=== PATIENT | female | born 1990 | race Caucasian/White ===

== ENCOUNTER → 2023-10-20 10:43 | Outpatient (REF) | payer OTHER, SELFPAY | LOC: PNTC 10:43 | PROVIDERS: ATTENDING PHYSICIAN Obstetrics & Gynecology | DX: O99.320 Drug use complicating pregnancy, unspecified trimester (principal); E83.118 Other hemochromatosis | CPT/HCPCS: 76805 ==

== ENCOUNTER 2024-03-29 19:44 | Inpatient (IN) | payer OTHER, SELFPAY ==
[2024-03-29 19:47] VITALS: BMI 28.3
[2024-03-29 20:12] VITALS: BP 149/98
[2024-03-29] MEDS: CYTOTEC 25 MICROGRAM VAG (20:16)
[2024-03-29 20:50] LABS: % Basophils 0.5 % (0-2); % Eosinophils 0.4 % (0-6); % Immature Granulocytes 0.6 % (0-0.5); % Lymphocytes 18.5 % (20.5-51.1); % Monocytes 7.2 % (1.7-9.3); % Neutrophils 72.8 % (42.2-75.2); Absolute Basophils 0.1 10^3/uL (0-0.2); Absolute Immature Granulocytes 0.1 10^3/uL (0-0.05); Absolute Lymphocytes 1.9 10^3/uL (1.2-3.4); Absolute Monocytes 0.7 10^3/uL (0.1-0.6); Absolute Neutrophils 7.3 10^3/uL (1.4-6.5); Hematocrit 27.7 % (37.0-47.0); Mean Corp Hgb Conc. 32.5 g/dL (33.0-37.0); Mean Corpuscular Hgb 28.8 pg (27.0-31.0); Mean Corpuscular Volume 88.5 fL (81.0-99.0); Mean Platelet Volume 11.3 fL (7.4-10.4); Nucleated Red Blood Cells % 0 %; Platelet Count 229 10^3/uL (130-400); Red Blood Cell Count 3.13 10^6/uL (4.20-5.40)
[2024-03-29 21:55] LABS: ALT (SGPT) 22 U/L (0-35); AST (SGOT) 40 U/L (14-36); Albumin 3.3 g/dl (3.5-5.0); Alkaline Phosphatase 206 U/L (38-126); Blood Urea Nitrogen 8 mg/dl (7-17); Calcium 8.9 mg/dl (8.4-10.2); Carbon Dioxide 21 mmol/L (22-30); Chloride 105 mmol/L (98-107); Estimated Creatinine Clearance > 125 ml/min; Glucose 86 mg/dl (70-99); Potassium 4.2 mmol/L (3.5-5.1); Sodium 132 mmol/L (135-145); Total Bilirubin 0.3 mg/dl (0.2-1.3); Total Protein 5.8 g/dl (6.3-8.2); eGFR > 60.00
[2024-03-29 22:19] LABS: Urine Albumin Negative (Neg - Trace); Urine Bilirubin Negative (Negative); Urine Character Clear (Clear); Urine Color Yellow; Urine Glucose Negative (Negative); Urine Ketone Negative (Negative); Urine Leukocyte Negative (Negative); Urine Nitrite Negative (Negative); Urine Occult Blood Negative (Negative); Urine Urobilinogen Negative (Neg - 1+)
[2024-03-29 22:39] LABS: Protein/creatinine Ratio 0.4; Urine Protein 13 mg/dl
[2024-03-29] MEDS: CYTOTEC 50 MICROGRAM PO (23:59)
[2024-03-30] MEDS: LR 1000 IV ×2 (01:49→05:30)
[2024-03-30] MEDS: SUBLIMAZE 100 MCG EPIDURAL (02:10)
[2024-03-30] MEDS: FENTANYL/BUPIVACAINE 100 EPIDURAL (02:11)
[2024-03-30] MEDS: CYTOTEC PO (04:36)
[2024-03-30] MEDS: PENICILLIN 110 UNITS IV (06:16)
[2024-03-30] MEDS: PRENATAL PLUS 1 TABLET PO (08:49)
[2024-03-30] MEDS: MOTRIN 600 MG PO ×3 (08:49→21:32)
[2024-03-30] MEDS: PEPCID PO (09:29)
[2024-03-30] MEDS: ADVAIR HFA 230/21 MCG INHALER INH (17:48)
[2024-03-30] MEDS: ADVAIR HFA 230/21 MCG INHALER 2 PUFF INH (17:49)
--- NOTE | 2024-03-30 18:13 | RESPNOTE ---
patient seen around 1800 for scheduled inhalers. Advair administered per order with spacer. patient states she does not take albuterol inhaler on schedule, only as needed. will contact doc for order change in morning.
[2024-03-30] MEDS: PEPCID 20 MG PO (20:07)
[2024-03-30] MEDS: SINGULAIR 10 MG PO (21:32)
[2024-03-30] MEDS: LEXAPRO 10 MG PO (21:33)
[2024-03-30] MEDS: CLARITIN 10 MG PO (21:33)
[2024-03-31 05:19] LABS: Hematocrit 28.3 % (37.0-47.0); Hemoglobin 9.3 g/dL (12.0-16.0)
[2024-03-31] MEDS: MOTRIN 600 MG PO (07:39)
[2024-03-31] MEDS: PRENATAL PLUS 1 TABLET PO (07:39)
[2024-03-31] MEDS: PEPCID 20 MG PO (07:39)
[2024-03-31] MEDS: SENOKOT-S 1 TABLET PO (07:39)
[2024-03-31 16:47] LABS: Syphilis/T. pallidum Ab Reflex Negative (Negative)
== END 2024-03-31 13:49 | disposition home or self-care (01) | DRG 807 ==
LOC: LDRP 19:44
PROVIDERS: Obstetrics & Gynecology; ADMITTING PHYSICIAN Obstetrics & Gynecology; ATTENDING PHYSICIAN Obstetrics & Gynecology
PROC: 3E0P7VZ Introduction of Hormone into Female Reproductive, Via Natural or Artificial Opening (ICD-10-PCS; 2024-03-29)
PROC: 10E0XZZ Delivery of Products of Conception, External Approach (ICD-10-PCS; 2024-03-30)
PROC: 4A1HXCZ Monitoring of Products of Conception, Cardiac Rate, External Approach (ICD-10-PCS; 2024-03-30)
PROC: 0UQMXZZ Repair Vulva, External Approach (ICD-10-PCS; 2024-03-30)
DX: O48.0 Post-term pregnancy (principal); Z37.0 Single live birth; O99.824 Streptococcus B carrier state complicating childbirth; O77.0 Labor and delivery complicated by meconium in amniotic fluid; O69.81X0 Labor and delivery complicated by cord around neck, without compression, not applicable or unspecified; E83.119 Hemochromatosis, unspecified; O99.284 Endocrine, nutritional and metabolic diseases complicating childbirth; O99.52 Diseases of the respiratory system complicating childbirth; J45.909 Unspecified asthma, uncomplicated; O99.344 Other mental disorders complicating childbirth; F41.9 Anxiety disorder, unspecified; O71.82 Other specified trauma to perineum and vulva; Z79.899 Other long term (current) drug therapy; Z3A.40 40 weeks gestation of pregnancy; Z88.5 Allergy status to narcotic agent; Z91.040 Latex allergy status; Z86.16 Personal history of COVID-19
CPT/HCPCS: 88307; 36415; 80053; 81003; 82570; 84156; 85014; 85018; 85025; 86780; 86850; 86900; 86901; 94640

== ENCOUNTER 2024-04-03 17:26 | Inpatient (IN) | payer OTHER, SELFPAY ==
[2024-04-03 16:14] VITALS: BP 133/97; BMI 27.0
[2024-04-03 16:43] LABS: % Basophils 0.6 % (0-2); % Eosinophils 3.5 % (0-6); % Lymphocytes 16.7 % (20.5-51.1); % Monocytes 5.7 % (1.7-9.3); % Neutrophils 72.5 % (42.2-75.2); Absolute Basophils 0.1 10^3/uL (0-0.2); Absolute Eosinophils 0.4 10^3/uL (0-0.7); Absolute Immature Granulocytes 0.1 10^3/uL (0-0.05); Absolute Lymphocytes 1.7 10^3/uL (1.2-3.4); Absolute Monocytes 0.6 10^3/uL (0.1-0.6); Absolute Neutrophils 7.5 10^3/uL (1.4-6.5); Hematocrit 27.3 % (37.0-47.0); Mean Corpuscular Hgb 29.8 pg (27.0-31.0); Mean Corpuscular Volume 90.4 fL (81.0-99.0); Mean Platelet Volume 10.7 fL (7.4-10.4); Nucleated Red Blood Cells % 0 %; Platelet Count 285 10^3/uL (130-400); Red Blood Cell Count 3.02 10^6/uL (4.20-5.40); Red Cell Dist. Width 13.6 % (11.5-14.5); White Blood Cell Count 10.3 10^3/uL (4.8-10.8)
[2024-04-03 16:51] LABS: ALT (SGPT) 82 U/L (0-35); AST (SGOT) 88 U/L (14-36); Albumin 3.6 g/dl (3.5-5.0); Alkaline Phosphatase 138 U/L (38-126); Blood Urea Nitrogen 13 mg/dl (7-17); Calcium 8.4 mg/dl (8.4-10.2); Carbon Dioxide 23 mmol/L (22-30); Chloride 108 mmol/L (98-107); Estimated Creatinine Clearance 111 ml/min; Glucose 72 mg/dl (70-99); Potassium 4.4 mmol/L (3.5-5.1); Sodium 138 mmol/L (135-145); Total Bilirubin 0.4 mg/dl (0.2-1.3); Total Protein 6.4 g/dl (6.3-8.2); eGFR > 60.00
[2024-04-03] MEDS: MAGNESIUM SULFATE 100 IV (17:36)
[2024-04-03] MEDS: LR 1000 IV (17:38)
[2024-04-03] MEDS: MAGNESIUM SULFATE 40 GRAM 1000 IV (18:01)
[2024-04-03] MEDS: TYLENOL 650 MG PO (20:02)
[2024-04-03] MEDS: ADVAIR HFA 230/21 MCG INHALER 2 PUFF INH (20:42)
[2024-04-03] MEDS: SINGULAIR 10 MG PO (21:53)
[2024-04-03] MEDS: LEXAPRO 10 MG PO (21:53)
[2024-04-03] MEDS: CLARITIN 10 MG PO (21:53)
[2024-04-04] MEDS: MOTRIN 600 MG PO ×3 (00:28→19:27)
[2024-04-04] MEDS: LR 1000 IV (06:00)
[2024-04-04] MEDS: ADVAIR HFA 230/21 MCG INHALER 2 PUFF INH ×2 (08:15→20:18)
[2024-04-04] MEDS: TYLENOL 650 MG PO (13:10)
[2024-04-04] MEDS: MAGNESIUM SULFATE 40 GRAM 1000 IV (13:12)
[2024-04-04] MEDS: NON-FORMULARY ITEM 1 UNIT SC (16:57)
[2024-04-04 17:03] LABS: ALT (SGPT) 67 U/L (0-35); AST (SGOT) 60 U/L (14-36); Magnesium 7.6 mg/dl (1.6-2.3)
[2024-04-04] MEDS: PRENATAL PLUS 1 TABLET PO (17:05)
[2024-04-04] MEDS: SINGULAIR 10 MG PO (22:37)
[2024-04-04] MEDS: CLARITIN 10 MG PO (22:37)
[2024-04-04] MEDS: LEXAPRO 10 MG PO (22:37)
[2024-04-05] MEDS: ADVAIR HFA 230/21 MCG INHALER 2 PUFF INH ×2 (08:29→19:10)
[2024-04-05] MEDS: PROCARDIA XL (EXTENDED RELEASE) 30 MG PO (09:18)
--- NOTE | 2024-04-05 11:52 | CM ---
Met with pt at bedside - readmit for PIH/Magnesium
Pt reports she lives with her and daughter in a 2 story condo. A friend and her child also reside in home
Independent at baseline, on Maternity leave, drives
DME - breast pump
HH - denies past hx
Has ride at d/c
PCP - Jhonny Vizcaino
Pharm - [facility]
Plan - anticipate home no needs when medically stable
[2024-04-05] MEDS: PRENATAL PLUS 1 TABLET PO (12:38)
[2024-04-05] MEDS: TYLENOL 650 MG PO ×2 (12:42→20:41)
[2024-04-05] MEDS: MOTRIN 600 MG PO (15:58)
[2024-04-05] MEDS: SINGULAIR 10 MG PO (22:06)
[2024-04-05] MEDS: CLARITIN 10 MG PO (22:06)
[2024-04-05] MEDS: LEXAPRO 10 MG PO (22:07)
[2024-04-05] MEDS: LEXAPRO 5 MG PO (22:07)
[2024-04-06] MEDS: PROCARDIA XL (EXTENDED RELEASE) 30 MG PO (07:47)
[2024-04-06] MEDS: PRENATAL PLUS 1 TABLET PO (07:48)
[2024-04-06] MEDS: ADVAIR HFA 230/21 MCG INHALER 2 PUFF INH (09:06)
--- NOTE | 2024-04-07 08:17 | W.DS.TRANS ---
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
-
Discharge Instructions:
Discharge Diagnosis/Procedures preeclampsia with severe features;
anemia; hemochromatosis; transaminitis
Instructions:
Stand-Alone Forms: [facility] Hypertensive Disorders
Changes to Home Medications: No
Discharge Medications:
DC Medications w/original date entered in [facility]
DuoNeb 3 ml inhalation Q4-5H PRN wheezing 03/29/24
1 tab PO DAILY 03/29/24
albuterol 90 mcg/actuation aerosol inhaler 90 mcg inhalation Q4 03/29/24
escitalopram oxalate 10 mg tablet 10 mg PO HS 03/29/24
famotidine 20 mg PO BID PRN symptoms decreased after delivery 03/29/24
fexofenadine 180 mg tablet 180 mg PO HS 03/29/24
fluticasone 500 mcg-salmeterol 50 mcg/dose blistr powdr for inhalation (Advair Diskus) 1 inh inhalation BID 03/29/24
montelukast 10 mg tablet (Singulair) 10 mg PO HS 03/29/24
ibuprofen 600 mg tablet 600 mg PO Q6HPRN PRN moderate pain/cramps #40 tabs 03/31/24
sennosides 8.6 mg-docusate sodium 50 mg tablet 1 tab PO DAILYPRN PRN constipation #0 tabs 03/31/24
calcium carbonate (Calcium Antacid) 400 mg PO Q6HPRN PRN indigestion 04/03/24
escitalopram oxalate 5 mg tablet 5 mg PO HS #30 tabs 04/06/24
nifedipine 30 mg tablet,extended release 30 mg PO BID #90 tabs 04/06/24
Home Medication Changes
Pending Results: No
Total time spent discharging patient (in min): 20
== END 2024-04-06 12:19 | disposition home or self-care (01) | DRG 776 ==
LOC: LDRP 17:26
PROVIDERS: Obstetrics & Gynecology; ADMITTING PHYSICIAN Obstetrics & Gynecology
DX: O14.15 Severe pre-eclampsia, complicating the puerperium (principal); O90.89 Other complications of the puerperium, not elsewhere classified; E83.119 Hemochromatosis, unspecified; J45.909 Unspecified asthma, uncomplicated; Z88.5 Allergy status to narcotic agent; Z86.16 Personal history of COVID-19
CPT/HCPCS: 80053; 83735; 84450; 84460; 85025; 94640